=== PATIENT | male | born 1995 | race Two or more races ===

== ENCOUNTER 2016-07-17 02:19 | Emergency (ER) | payer SELFPAY ==
[~2016-07-17] VITALS: Ht 182.9 cm; Wt 99.8 kg
[2016-07-17 02:25] VITALS: BP 144/87
== END 2016-07-17 03:19 | disposition home or self-care (01) ==
LOC: ER 02:22
DX: M79.644 Pain in right finger(s) (principal); M79.89 Other specified soft tissue disorders
CPT/HCPCS: 99281; A4606; Z7610; Z7502

== ENCOUNTER 2017-01-02 17:42 | Emergency (ER) | payer MEDICAID ==
[~2017-01-02] VITALS: Ht 182.9 cm; Wt 97.1 kg
--- NOTE | 2017-01-02 18:07 | NUR ---
PT OT ER BED 21. PRESENTS W/ MULTIPLE ABRASIONS AND LAC TO BILAT FOREARM. STATES SELF INFFLICTED W/ RAZOR LAST NIGHT AFTER DRINKING AND WAS EMOTIONAL AND FEELING SUICIDAL. NO SI AT THIS TIME. AWAITING MD SMITH
--- NOTE | 2017-01-02 18:12 | NUR ---
[employer] SHIPPING ASSOCIATE AT BEDSIDE FOR EVAL.
--- NOTE | 2017-01-02 18:16 | NUR ---
FEDERAL MEDIATOR AT BEDSIDE FOR BLOOD DRAW.
[2017-01-02 18:21] LABS: BASOPHILS # (AUTO) 0.2 /CMM (0.0-0.2); BASOPHILS % (AUTO) 2.4 % (0.0-2.0); EOSINOPHILS # (AUTO) 0.1 /CMM (0.0-0.7); EOSINOPHILS % (AUTO) 0.7 % (0.0-6.0); HEMATOCRIT 45 % (39-51); HEMOGLOBIN 14.4 g/dL (13.5-17.5); LYMPHOCYTES # (AUTO) 2.5 /CMM (0.8-4.8); LYMPHOCYTES % (AUTO) 28.9 % (20.0-44.0); MEAN CORPUSCULAR HEMOGLOBIN 29 PG (26.0-33.0); MEAN CORPUSCULAR HGB CONC 32 g/dl (31.0-36.0); MEAN CORPUSCULAR VOLUME 91 fL (80-96); MONOCYTES # (AUTO) 0.8 /CMM (0.1-1.30); NEUTROPHILS # (AUTO) 4.9 /CMM (1.8-8.9); PLATELET COUNT (AUTO) 261 /CMM (150-450); RDW COEFFICIENT OF VARIATION 11.7 (11.5-15.0); RED BLOOD CELL COUNT(AUTO) 4.94 MIL/uL (4.5-6.0); WHITE BLOOD COUNT (AUTO) 8.5 K/uL (4.3-11.0)
--- NOTE | 2017-01-02 18:27 | NUR ---
IGNACIO SAND BUFFER AT BEDSIDE FOR LAC REPAIR.
[2017-01-02] MEDS ORDERED: TDAP [DIPH/PERTUSSIS/TET] 0.5 ML VIAL IM ONE ×2 (18:30)
[2017-01-02 18:37] LABS: ACETAMINOPHEN < 2 ug/ml (10-30); ALANINE AMINOTRANSFERASE 27 U/L (12-78); ALBUMIN 4.9 g/dL (3.4-5.0); ALCOHOL, BLOOD < 3 mg/dL (0-0); ALKALINE PHOSPHATASE 72 U/L (46-116); ASPARTATE AMINOTRANSFERASE 29 U/L (15-37); BILIRUBIN,DIRECT 0.2 mg/dL (0.0-0.2); CALCIUM, SERUM 9.4 mg/dL (8.5-10.1); CARBON DIOXIDE 30 mmol/L (21-32); CHLORIDE 103 mmol/L (98-107); CREATININE 1.5 mg/dL (0.6-1.3); GLUCOSE 115 mg/dL (74-106); POTASSIUM 4.2 mmol/L (3.5-5.1); SALICYLATE < 2.8 mg/dL (2.8-20.0); SODIUM SERUM 140 mmol/L (136-145); TOTAL PROTEIN, SERUM 8.5 g/dL (6.4-8.2); UREA NITROGEN, BLOOD 15 mg/dL (7-18)
[2017-01-02 19:04] LABS: APPEARANCE,URINE Clear (CLEAR); BILIRUBIN,URINE Negative (NEGATIVE); BLOOD, URINE Negative Ery/uL (NEGATIVE); COLOR,URINE Yellow (YELLOW); KETONES,URINE 15 (NEGATIVE); LEUKOCYTE ESTERASE ,URINE Negative (NEGATIVE); NITRITE, URINE Negative (NEGATIVE); PH,URINE 5.5 (5.0-8.0); PROTEIN,URINE Trace mg/dl (NEGATIVE); UGLUCOSE Negative (NEGATIVE); UROBILINOGEN,URINE 0.2 EU/dL (0.2)
--- NOTE | 2017-01-02 19:06 | NUR ---
CALLED [facility] FOR PSYCH EVAL, ETA WITHIN THE HOUR
[2017-01-02 19:14] LABS: BACTERIA,URINE None seen /HPF (None Seen); RBC,URINE 0-2 /HPF (0-2); SQUAMOUS EPITHELIAL CELL,UR Few /HPF (None Seen); WBC,URINE 0-2 /HPF (0-3)
--- NOTE | 2017-01-02 20:47 | NUR ---
PT IS MEDICALLY AND PSYCH CLEARED. WOUND CARE PROVIDED. Patient discharged to home in stable condition. Written and verbal after care instructions given. Patient verbalizes understanding of instruction.
[2017-01-02 20:48] VITALS: BP 125/77
== END 2017-01-02 20:49 | disposition home or self-care (01) ==
LOC: ER 17:44
DX: S51.812A Laceration without foreign body of left forearm, initial encounter (principal); S51.811A Laceration without foreign body of right forearm, initial encounter; R45.851 Suicidal ideations; N28.9 Disorder of kidney and ureter, unspecified; Z23 Encounter for immunization; X78.8XXA Intentional self-harm by other sharp object, initial encounter; Y93.89 Activity, other specified; Y92.89 Other specified places as the place of occurrence of the external cause; Y99.8 Other external cause status
CPT/HCPCS: 12004; 36415; 80048; 80076; 80305; 80329; 81001; 85025; 90471; 90715; 99284; A4606 ×2; A6403; G0480 ×2; Z7610 ×2; 81000-TC

== ENCOUNTER 2017-01-14 07:19 | Emergency (ER) | payer MEDICAID ==
[~2017-01-14] VITALS: Ht 61 cm; Wt 97.5 kg
[2017-01-14 07:21] VITALS: BP 138/67
== END 2017-01-14 07:38 | disposition home or self-care (01) ==
LOC: ER 07:20
DX: S51.812D Laceration without foreign body of left forearm, subsequent encounter (principal); S51.811D Laceration without foreign body of right forearm, subsequent encounter
CPT/HCPCS: A4606; Z7502; Z7610